=== PATIENT | male | born 1960 | race African-American/Black ===

== ENCOUNTER 2017-04-18 12:36 | Emergency (ER) | payer SELFPAY ==
[2017-04-18 12:38] VITALS: BP 160/88; PULSE 85; RESP 12; TEMP 98.1; O2SAT 99
== END 2017-04-18 13:15 | disposition left against medical advice (07) ==
LOC: NED 12:36
DX: R07.9 Chest pain, unspecified (principal)
CPT/HCPCS: 99281

== ENCOUNTER 2017-09-18 13:18 | Emergency (ER) | payer SELFPAY ==
[~2017-09-18] VITALS: Ht 162.6 cm; Wt 75.0 kg
[2017-09-18 13:30] VITALS: BP 163/67; PULSE 70; RESP 18; TEMP 98.7; O2SAT 98
[2017-09-18] MEDS ORDERED: PROPARACAINE HCL 0.5% OPHT SOLN 15 ML BTL EACH EYE ONE (13:45)
--- NOTE | 2017-09-18 13:46 | PD ---
HPI Chief Complaint: Eye Problems/Injury Time Seen by Provider: 13:43 Travel History International Travel<30 days: No Contact w/Intl Traveler<30days: No Traveled to known affect area: No History of Present Illness HPI 56-year-old male presents to the emergency department for evaluation of right eye irritation, foreign body sensation since Friday. He states that he was messing with concrete and got concrete his eye on Friday. Since then, he has had irritation foreign body sensation to the upper eye. He does state that he has had any drainage which is thick and crusty in the morning. Patient wears shades, but no contacts. He denies pain or itchiness. He has no chronic medical problems and takes no prescribed medications. No photophobia. No exacerbating or alleviating factors. He states he has been washing his eye at without improvement. Mild severity. Patient states the concrete that got into his eye was dry. PFSH Past Medical History Medical History: Denies Significant Hx Hx Anticoagulant Therapy: No Diabetes: No Diminished Hearing: No Tetanus Vaccination: < 5 Years Past Surgical History Other Surgery: Yes (LEFT LEG AND LEFT KNEE SURGERY) Social History Alcohol Use: Yes (OCASSIONALLY) Tobacco Use: Yes (/2 PPD) Substance Use: No Allergies-Medications (Allergen,Severity, Reaction): Coded Allergies: No Known Allergies (Verified Adverse Reaction, Unknown, 09/18/17) Reported Meds & Prescriptions Reported Meds & Active Scripts Active No Active Prescriptions or Reported Medications Review of Systems Except as stated in HPI: all other systems reviewed are Neg Physical Exam Narrative GENERAL: Well-nourished, well-developed male patient, ambulatory. Afebrile. SKIN: Focused skin assessment warm/dry. HEAD: Normocephalic. Atraumatic. ENT: Mucosa pink and moist. No erythema or exudates. No uvular edema. No uvular , palatal, or tonsillar deviation. Airway patent. Nasal turbinates appear normal without nasal blood, purulent drainage or septal hematoma. Bilateral tympanic membranes clear without erythema or perforation. EYES: No scleral icterus. Right conjunctiva is erythematous. No active drainage. I did remove a small piece of foreign body from the upper lid upon upper lid eversion that does appear to be concrete. PH is approximately 7.5. Fluorescein examination is negative. NECK: Supple, trachea midline. No JVD or lymphadenopathy. CARDIOVASCULAR: Regular rate and rhythm without murmurs, gallops, or rubs. RESPIRATORY: Breath sounds equal bilaterally. No accessory muscle use. Lung sounds are clear to auscultation. GASTROINTESTINAL: Abdomen soft, non-tender, nondistended. MUSCULOSKELETAL: No cyanosis, or edema. Data Data Last Documented VS Vital Signs Date Time Temp Pulse Resp B/P (MAP) Pulse Ox O2 Delivery O2 Flow Rate FiO2 09/18/17 13:30 98.7 70 18 163/67 (99) 98 Orders Orders Proparacaine 0.5% Opth Soln (Alcaine 0.5 (09/18/17 13:45) MDM Medical Decision Making Medical Screen Exam Complete: Yes Emergency Medical Condition: Yes Medical Record Reviewed: Yes Differential Diagnosis foreign body vs. conjunctivitis vs. corneal abrasion vs. corneal laceration vs. iritis Narrative Course 56 year old male presents to the emergency department for evaluation of right eye irritation since Friday. Visual acuity is 20/30 in the left eye, 20/40 in the right eye. Fluorescein examination is negative. I did remove a small piece of foreign body from the upper lid. This is very patient states he has his foreign body sensation. PH is approximately 7.5. Patient will be discharged with a prescription for erythromycin ophthalmic ointment. He will be given the name and number of Dr. Kessler, multimedia project manager, to follow-up with. He verbalizes agreement. Diagnosis Primary Impression: Irritation of right eye Referrals: Dyan Kessler MD call for appointment Patient Instructions: Eye Foreign Body (ED), General Instructions Additional Instructions: Use erythromycin ophthalmic ointment as directed. Warm, moist compresses. Follow-up Dr. Kessler, multimedia project manager. Return to the emergency department for any acute worsening of symptoms. Med/Other Pt SpecificInfo: Prescription(s) given Scripts Erythromycin Opth Oint (Erythromycin Opth Oint) 5 Mg/Gm Oint 1 APPLIC RIGHT EYE QID for Infection, #1 TUBE 0 Refills Prov: TommyZakiya 09/18/17 Disposition: 01 DISCHARGE HOME Condition: Stable Zakiya Sanders September 18, 2017 13:46
[2017-09-18] MEDS ORDERED: ERYTOIN10 RIGHT EYE (14:15)
== END 2017-09-18 14:34 | disposition home or self-care (01) ==
LOC: NEPK 13:18
DX: H57.8 Other specified disorders of eye and adnexa (principal); T15.91XA Foreign body on external eye, part unspecified, right eye, initial encounter; F17.210 Nicotine dependence, cigarettes, uncomplicated
CPT/HCPCS: 67938